=== PATIENT | female | born 1955 ===

== ENCOUNTER 2017-06-30 18:58 | Emergency (ER) | payer MEDICAID ==
[2017-06-30 19:35] VITALS: RESP 16; TEMP 98; O2SAT 100
--- NOTE | 2017-06-30 20:01 | C.PDOC ---
History Of Present Illness 61 year old female presents to ED with complaints of redness to right eye which she noticed 3 days ago. She states one afternoon her daughter noticed the eye looked red. She denies any eye pain, vision changes, injury, use of contact lens , dryness, itching, or discharge. Time Seen by Provider: 06/30/17 19:48 Chief Complaint (Nursing): Eye Problem History Per: Patient History/Exam Limitations: no limitations Onset/Duration Of Symptoms: Days (3) Current Symptoms Are (Timing): Still Present Past Medical History Reviewed: Historical Data, Nursing Documentation, Vital Signs Vital Signs: Last Vital Signs Temp 98 F 06/30/17 19:32 Pulse 78 06/30/17 20:27 Resp 16 06/30/17 20:27 BP 115/77 06/30/17 20:27 Pulse Ox 100 06/30/17 20:13 - Medical History PMH: HTN Surgical History: No Surg Hx Family History: States: No Known Family Hx - Social History Hx Alcohol Use: No Hx Substance Use: No - Immunization History Hx Tetanus Toxoid Vaccination: No Hx Influenza Vaccination: Yes Hx Pneumococcal Vaccination: Yes Review Of Systems Except As Marked, All Systems Reviewed And Found Negative. Eyes: Positive for: Redness (right eye), Other (No itch. No discharge.). Negative for: Pain, Vision Change Physical Exam - Physical Exam Appears: Well, Non-toxic, No Acute Distress Skin: Warm, Dry, No Rash Head: Atraumatic, Normacephalic Eye(s): bilateral: PERRL, EOMI, right: Other (subconjunctival hemorrhage to medial lower corner of eye), left: Normal Inspection Nose: Normal, No Flaring, No Discharge Oral Mucosa: Moist Neck: Normal ROM Chest: Symmetrical Extremity: Bilateral: Atraumatic, Normal ROM Neurological/Psych: Oriented x3, Normal Speech Gait: Steady ED Course And Treatment O2 Sat by Pulse Oximetry: 100 (RA) Pulse Ox Interpretation: Normal Medical Decision Making Medical Decision Making: patient with complaint of redness to eye and exam consistent with subconjunctival hemorrhage. She has no complaints of pain vision change or injury. explain there is no medical treatment and will self resolve. She feels comfortable going home and will be discharged. Advise follow up if any symptoms change Disposition Counseled Patient/Family Regarding: Need For Followup, Rx Given - Disposition Referrals: AngyCalixto cavazos [Staff Provider] - Disposition: HOME/ ROUTINE Disposition Time: 19:59 Condition: GOOD Additional Instructions: usted oseguera sido examinado y se oseguera encontrado ingris hemorragia subconjuntival. no hay tratamiento y esto se resolver sin ningn tratamiento mdico gerry un seguimiento con fuchs mdico u oculista si desarrolla algn cambio en la visin, dolor en los ojos, fiebre o hinchazn Instructions: Subconjunctival Hemorrhage (ED) Forms: [employer] (Syrian) Print Language: [id number] - POA Present On Arrival: None - Clinical Impression Clinical Impression: Subconjunctival hemorrhage of right eye - PA / [employer] / Resident Statement MD/DO has reviewed & agrees with the documentation as recorded. - Scribe Statement The provider has reviewed the documentation as recorded by the Scribe Cynthia Munoz All medical record entries made by the Scribe were at my direction and personally dictated by me. I have reviewed the chart and agree that the record accurately reflects my personal performance of the history, physical exam, medical decision making, and the department course for this patient. I have also personally directed, reviewed, and agree with the discharge instructions and disposition.
[2017-06-30 20:37] VITALS: BP 115/77; PULSE 78
== END 2017-06-30 20:42 | disposition home or self-care (01) ==
LOC: C.ER 18:58
DX: H11.31 Conjunctival hemorrhage, right eye (principal)